=== PATIENT | male | born 1985 | race Two or more races ===

== ENCOUNTER 2024-04-22 13:34 | Outpatient (CLI) | payer OTHER | END 2024-04-22 13:41 | disposition home or self-care (01) | LOC: RAD 13:34 | PROVIDERS: ATTEND Orthopaedic Surgery | DX: S52.125A Nondisplaced fracture of head of left radius, initial encounter for closed fracture (principal) ==

== ENCOUNTER 2024-11-11 19:51 | Emergency (ER) | payer OTHER ==
[~2024-11-11] VITALS: Ht 177.8 cm; Wt 117.9 kg
[2024-11-11] MEDS ORDERED: ZESTRIL10 M1 PO (20:11)
[2024-11-11] MEDS ORDERED: MORPHINE SULFATE 4 MG/ML CARTRIDGE IV ONE (20:30)
[2024-11-11] MEDS ORDERED: PERCOCET 10-321 EACH PO (23:33)
== END 2024-11-11 23:50 | disposition home or self-care (01) ==
LOC: ER 19:52
DX: S82.841A Displaced bimalleolar fracture of right lower leg, initial encounter for closed fracture (principal); S82.61XA Displaced fracture of lateral malleolus of right fibula, initial encounter for closed fracture; W18.39XA Other fall on same level, initial encounter; Y93.89 Activity, other specified; Y92.89 Other specified places as the place of occurrence of the external cause; Y99.9 Unspecified external cause status; Z91.018 Allergy to other foods